=== PATIENT | male | born 1990 | race Two or more races ===

== ENCOUNTER 2024-06-02 23:54 | Emergency (ER) | payer MEDICAID, SELFPAY ==
[2024-06-02 23:55] VITALS: BMI 26.6
--- NOTE | 2024-06-03 00:01 | EKG_ITS ---
[facility] Test Date: 2024-06-03 Pat Name: YURIY MCELROY Department: Room: - Gender: Male Customer Support Associate: : 1990 Requested By: Lei Evans Order Number: [id number] Reading MD: Lei Evans Measurements Intervals [place] Rate: 69 P: 72 SD: 165 QRS: 76 QRSD: 100 T: 54 QT: 414 QTc: 444 Interpretive Statements SINUS RHYTHM No previous ECG available for comparison /store/S0/[id number]
[2024-06-03 01:01] VITALS: BP 123/76; PULSE 80; RESP 18; TEMP 36.9; O2SAT 97
--- NOTE | 2024-06-03 01:21 | PD.EDCHEST ---
ED Chest Pain RME/HPI General Chief Complaint: Chest Pain Stated Complaint: FEELING SHOCKS IN MY HEART Time Seen by Provider: 06/03/24 00:36 Arrival date/time: 06/02/24 23:54 34-year-old male who denies previous cardiac history reports with complaints of shocking sensation to the heart. Patient states that he was in normal state of health until he received some bad news that then caused the pain in his chest he denies shortness of breath nausea or vomiting dizziness blurred vision ringing or ears or radiating chest pain. Patient states that he has not taken any medications for symptoms. Patient states that he did note that the pain has decreased but has not resolved Related Data Home Medications ?Medication ?Instructions ?Recorded ?Confirmed methadone 10 mg tablet 120 mg PO QDAY #0 tabs 04/14/17 02/28/18 Previous Rx's ?Medication ?Instructions ?Recorded acetaminophen 650 mg 650 mg PO Q8H PRN fever or pain 06/28/21 tablet,extended release #30 tabs ibuprofen 600 mg tablet 600 mg PO Q8H PRN fever or pain 06/28/21 #30 tabs acetaminophen 500 mg capsule 1,000 mg (2 x 500 mg) PO Q8HR PRN 09/23/21 pain #60 caps ibuprofen 800 mg tablet 800 mg PO TID PRN pain #30 tabs 09/23/21 Allergies Allergy/AdvReac Type Severity Reaction Status Date / Time No Known Allergies Allergy Verified 06/02/24 23:57 Review of Systems Constitutional Constitutional: Denies chills, Denies fatigue and Denies headache(s) ENT Ears, Nose, Mouth, and Throat: Denies dizziness and Denies headache(s) Cardiovascular Cardiovascular: Reports chest pain and Denies dyspnea Respiratory Respiratory: Denies cough and Denies dyspnea Musculoskeletal Musculoskeletal: Denies limited range of motion and Denies myalgias Integumentary/Breasts Skin/Breast: Denies unusual bruising and Denies wounds Neurologic Neurologic: Denies dizziness and Denies headache(s) Psychiatric Psychiatric: Denies anxiety and Denies depression Endocrine Endocrine: Denies fatigue Hematologic/Lymphatic Hematologic/Lymphatic: Denies as per HPI and Denies easy bleeding Course Course Course Narrative: 34-year-old male with no previous past medical history reports with complaints of sudden onset of chest pain that began after receiving some bad news. Patient is EKG with normal sinus rhythm no ischemia or STEMI is noted patient appears to be in no distress pain seems to be resolving with talking to patient differential diagnosis includes anxiety versus depression versus muscle skeletal pain versus bereavement. Patient is stable nontoxic-appearing with stable vital signs will be discharged home as his symptoms have resolved a cardiac workup not warranted at this time Quality Measures none Orders Category Date Time Status EKG (ED ONLY) *Do not use* NOW Care 06/03/24 00:02 Completed EKG (ED Only) Stat Exams 06/03/24 00:01 Draft Vital Signs Vital signs: Vital Signs Temperature 98.4 F 06/03/24 01:01 Pulse Rate 80 06/03/24 01:01 Respiratory Rate 18 06/03/24 01:01 Blood Pressure 123/76 06/03/24 01:01 Pulse Oximetry (%) 97 06/03/24 01:01 Oxygen Delivery Method Room Air 06/03/24 01:01 Procedures -ED EKG Interpretation #1: EKG Impression: Normal sinus rhythm, No acute ST-T changes and No ischemic changes Chest Pain Patient data External records reviewed:: None Clinical information provided by:: patient Social determinants that could affect healthcare access:: none Patient has the following chronic illnesses:: none How is presenting disease/condition affected by chronic disease/condition?: no chronic disease Evaluation data The following diagnostics were reviewed and interpreted by me:: EKG tracing(s) Lab and/or radiology exams considered but not ordered:: Cardiac enzymes, CMP, CBC Interpretation Summary: Normal sinus rhythm no ischemia or STEMI noted Medications / Prescriptions Medications or Prescriptions considered but not ordered:: None Medication administrations:: None Consultations Consultation(s) initiated? (list below): No Diagnosis Most likely diagnosis given after review of the tests above:: Anxiety reaction Admission Indicated Admission indicated?: not indicated Admission Request Was there a request for admission?: No Disposition Plan Disposition Plan: Discharge Discharge Attestation Discharge Attestation: The patient and all family members were given an opportunity to ask questions and understood the discharge instructions. Discharge instructions specifically effects, indications for sooner follow up or return to the emergency department, and the expected course of current diagnosis. Patient condition: Stable Discharge Plan Plan Patient Disposition: HOME (Self Care) Prescriptions/Referrals Prescriptions/Med Rec: No Action methadone 10 mg Tablet 120 mg PO QDAY Qty: 0 acetaminophen 650 mg tablet extended release 650 mg PO Q8H PRN (Reason: fever or pain) Qty: 30 0RF Rx Instructions: swallow whole; do not chew/break/dissolve/open ibuprofen 600 mg tablet 600 mg PO Q8H PRN (Reason: fever or pain) Qty: 30 0RF ibuprofen 800 mg tablet 800 mg PO TID PRN (Reason: pain) Qty: 30 0RF acetaminophen 500 mg capsule 1,000 mg PO Q8HR PRN (Reason: pain) Qty: 60 0RF Problem List Clinical Impression: Anxiety reaction Patient/Caregiver Discharge Instructions Discharge Activity: activity as tolerated Education Materials: ED Anxiety Reaction Additional Instructions: Drink plenty of fluids get plenty of rest if symptoms return or worsen return to the emergency department immediately otherwise follow-up with your primary care provider in 24 to 48 hours Print Language: Estonian Stand Alone Forms: Alison Award Info., Patient Portal Info Letter
== END 2024-06-03 01:34 | disposition home or self-care (01) ==
LOC: SERX 06-03 01:47
PROVIDERS: Emergency Provider Emergency Medicine
DX: F41.1 Generalized anxiety disorder (principal); R07.9 Chest pain, unspecified
CPT/HCPCS: 93005; 99283

== ENCOUNTER 2024-06-08 12:24 | Emergency (ER) | payer MEDICAID, SELFPAY ==
[2024-06-08 12:25] VITALS: BMI 26.6
[2024-06-08 13:04] VITALS: BP 112/76; PULSE 73; RESP 16; TEMP 36.9; O2SAT 99
--- NOTE | 2024-06-08 13:17 | XR_ITS ---
Examination: PA lateral chest 2 views TECHNIQUE: Upright PA lateral chest 2 views Exam date and time: June 08, 2024 1335 hours Comparison April 14, 2017 INDICATIONS: Chest pain nausea beginning one week ago. FINDINGS: Normal heart size Lungs are clear. The osseous structures are intact IMPRESSION: No active disease
--- NOTE | 2024-06-08 13:17 | EKG_ITS ---
[facility] Test Date: 2024-06-08 Pat Name: YURIY MCELROY Department: Room: - Gender: Male Boner Meat: : 1990 Requested By: Rosa Rodriguez ([facility]) Ronnie Order Number: [id number] Reading MD: Rosa Rodriguez ([facility]) Ronnie Measurements Intervals [place] Rate: 64 P: 69 HI: 172 QRS: 79 QRSD: 100 T: 43 QT: 327 QTc: 339 Interpretive Statements SINUS RHYTHM NONSPECIFIC T-WAVE ABNORMALITY Compared to ECG 06/03/2024 01:05:49 T-wave abnormality now present /store/S0/[id number]/ecg/[id number].pdf
--- NOTE | 2024-06-08 13:27 | PD.EDRME ---
Rapid Medical Screening Exam RME Arrival date/time: 06/08/24 12:24 34-year-old male presents emergency department with complaints of chest pain. I have greeted and performed a focused initial assessment of this patient. Initial appropriate labs ordered at this time. A comprehensive ED assessment and evaluation of the patient and analysis of all test and completion of medical decision making process will be conducted by additional ED provider. Chief Complaint: Chest Pain Time Seen by Provider: 06/08/24 12:35 Vital signs: Vital Signs Temperature 98.5 F 06/08/24 13:04 Pulse Rate 73 06/08/24 13:04 Respiratory Rate 16 06/08/24 13:04 Blood Pressure 112/76 06/08/24 13:04 Pulse Oximetry (%) 99 06/08/24 13:04 Oxygen Delivery Method Room Air 06/08/24 13:04
[2024-06-08 13:34] LABS: Basophils % (Auto) 1 % (0-2.5); Eosinophils # (Auto) 0.2 Thou/mm3 (0.0-0.5); Eosinophils % (Auto) 2 % (0-10); Hematocrit 42.6 % (41.0-53.0); Hemoglobin 14.5 g/dL (13.5-16.0); Immature Granulocytes % (Auto) 0 % (0-0); Immature Granulocytes Auto 0.01 Thou/mm3 (0.00-0.00); Lymphocytes # (Auto) 3.7 Thou/mm3 (1.0-4.8); Lymphocytes % (Auto) 44 % (10-50); Mean Corpuscular Hemoglobin 29.1 pg (25.0-35.0); Mean Corpuscular Volume 86 fL (80-100); Monocytes # (Auto) 0.4 Thou/mm3 (0.0-0.8); Monocytes % (Auto) 5 % (0-12); Neutrophils # (Auto) 4.2 Thou/mm3 (1.8-7.7); Neutrophils % (Auto) 49 % (37-80); Nucleated Red Blood Cell % 0 /100 WBC (0); Platelet Count 199 Thou/mm3 (140-440); RDW Standard Deviation 40.4 fL (35.1-43.9); Red Blood Count 4.98 Miln/mm3 (4.50-5.90); White Blood Count 8.5 Thou/mm3 (3.8-10.6)
[2024-06-08 13:52] LABS: Alanine Aminotransferase 16 U/L (10-49); Albumin, Serum 4.8 gm/dL (3.5-5.0); Albumin/Globulin Ratio 1.6 (1.2-2.2); Alkaline Phosphatase 87 U/L (46-116); Anion Gap 5 (7-16); Aspartate Amino Transferase 25 U/L (0-34); BUN/Creatinine Ratio 18 Ratio (12-20); Bilirubin,Total 0.2 mg/dL (0.3-1.2); Blood Urea Nitrogen 16 mg/dL (9-23); Carbon Dioxide 29.7 mMol/L (20.0-31.0); Chloride 102 mMol/L (98-107); Creatinine (Component) 0.9 mg/dL (0.6-1.3); Estimated Creatinine Clearance 110.2 mL/min (>60); Glucose 88 mg/dL (74-106); Lipase 36 U/L (12-53); Magnesium 1.9 mg/dL (1.6-2.6); Osmolality,Calculated 274 (275-295); Potassium 4.5 mMol/L (3.4-5.1); Sodium 137 mMol/L (136-145); Total Protein 7.8 gm/dL (5.7-8.2); Troponin I < 0.002 ng/mL (0.0-0.045); eGFR > 60 See Note
[2024-06-08 15:09] LABS: Collection Type, Urine Clean Catch
[2024-06-08 15:18] LABS: Bilirubin,Urine Negative (Negative); Blood,Urine Trace (Negative); Clarity,Urine Clear (Clear/Hazy); Color,Urine Lt-Yellow (Lt Yel-Yel); Glucose, Urine Negative (Negative); Ketones,Urine Negative (Negative); Leukocyte Esterase,Urine Negative (Negative); Nitrite,Urine Negative (Negative); Protein,Urine Negative (Neg - Trace); RBC,Urine 4 /hpf (0-3); Specific Gravity,Urine 1.025 (1.001-1.035); Squamous Epithelial Cell,Urine 1 /hpf (0-5); Urobilinogen,Urine Negative mg/dL (0.0-1.0); WBC,Urine 1 /hpf (0-5)
--- NOTE | 2024-06-08 16:28 | EDNOTE_ITS ---
ED Chest Pain RME/HPI General Chief Complaint: Chest Pain Stated Complaint: CHEST PAIN Time Seen by Provider: 06/08/24 12:35 Source: patient Arrival date/time: 06/08/24 12:24 34-year-old male who denies previous cardiac history reports with complaints of mid sternal chest pain. Reports the pain has been intermittent in the middle of the chest going up into esophagus. Reports he was here in the emergency department a couple weeks ago with a similar symptoms patient requesting a work up. he denies shortness of breath nausea or vomiting dizziness blurred vision ringing or ears or radiating chest pain. Patient states that he has not taken any medications for symptoms. Patient states that he did note that the pain has decreased but has not resolved Mode of arrival: ambulatory Limitations: no limitations RME / HPI RME / HPI narrative: 06/08/24 12:24 34-year-old male presents emergency department with complaints of chest pain. I have greeted and performed a focused initial assessment of this patient. Initial appropriate labs ordered at this time. A comprehensive ED assessment and evaluation of the patient and analysis of all test and completion of medical decision making process will be conducted by additional ED provider. Related Data Home Medications ?Medication ?Instructions ?Recorded ?Confirmed methadone 10 mg tablet 120 mg PO QDAY #0 tabs 04/1402/28/18 Previous Rx's ?Medication ?Instructions ?Recorded acetaminophen 650 mg 650 mg PO Q8H PRN fever or p ain 06/28/21 tablet,extended release #30 tabs ibuprofen 600 mg tablet 600 mg PO Q8H PRN fever or p ain 06/28/21 #30 tabs acetaminophen 500 mg capsule 1,000 mg (2 x 500 mg) PO Q8HR PRN 09/23/21 pain #60 caps ibuprofen 800 mg tablet 800 mg PO TID PRN pain #30 t abs 09/23/21 Allergies Allergy/AdvReac Type Severity Reaction Status Date / Time No Known Allergies Allergy Verified 06/08/24 12:29 Review of Systems Review of Systems Systems Reviewed: All systems reviewed, normal except as documented Narrative Review of Systems: Gen: No fever, no chills, no weight loss EYES: No discharge, no visual changes, no pain HEENT: No ear pain, no congestion, no sore throat PULM: No shortness of breath, no cough, no congestion CV: + chest pain, no dyspnea on exertion, no palpitations GI: No nausea, no vomiting, no diarrhea, no pain, no constipation : No frequency, no urgency, no dysuria Musc/skel: No joint pain, no back pain Skin: No rash Psyc: No hallucinations, no depression Heme/Lymph: No easy bleeding or bruising tendencies Neuro: No weakness, no headache ED Exam General Limitations: Present no limitations General appearance: Present alert and anxious Head Head exam: Present atraumatic Eye Eye exam: Present normal appearance, PERRL and EOMI ENT ENT exam: Present normal exam, normal oropharynx and mucous membranes moist Neck Neck exam: Present normal inspection, full ROM and trachea midline Chest Chest inspection: Present normal inspection and symmetric chest wall rise Respiratory Respiratory exam: Present normal lung sounds bilaterally Cardiovascular Cardiovascular exam: Present regular rate, normal rhythm and normal heart sounds Abdominal Exam Abdominal exam: Present soft and normal bowel sounds Extremities Exam Extremities exam: Present normal inspection and full ROM Back Exam Back exam: Present normal inspection and full ROM Neurological Exam Neurological exam: Present alert, oriented X3 and CN II-XII intact Psychiatric Psychiatric exam: Present normal affect and normal mood Skin Skin exam: Present warm, dry, intact and normal color Course Quality Measures none Orders Category Date Time Status EKG (ED ONLY) *Do not use* NOW Care 06/08/24 13:17 Completed NPO STAT Care 06/08/24 13:17 Completed EKG (ED Only) Stat Exams 06/08/24 13:17 Ordered XR chest 2V Stat Exams 06/08/24 13:17 Completed CBC Stat Lab 06/08/24 13:29 Completed Comprehensive Metabolic Panel Stat Lab 06/08/24 13:29 Completed Lipase Stat Lab 06/08/24 13:29 Completed Magnesium Stat Lab 06/08/24 13:29 Completed Troponin I Stat Lab 06/08/24 13:29 Completed Urinalysis Stat Lab 06/08/24 14:45 Completed Acetaminophen Tab [Tylenol ES Tab] Med 06/08/24 16:55 Discontinued 1,000 mg PO X1 ONE Vital Signs Vital signs: Vital Signs Temperature 98.5 F 06/08/24 13:04 Pulse Rate 73 06/08/24 13:04 Respiratory Rate 16 06/08/24 13:04 Blood Pressure 112/76 06/08/24 13:04 Pulse Oximetry (%) 99 06/08/24 13:04 Oxygen Delivery Method Room Air 06/08/24 13:04 Chest Pain MDM Narrative MDM Narrative:: This is a 34 y old patient presents with chest pain, with symptoms suggestive of noncardiac chest pain. History without high risk features non substernal, no exertional component. Patient had reported pain began after bad news. However patient states this is his second visit to the ER for chest pain and no workup was completed on last visit. Even though patient has minimal CAD his risk factors including his age. Will go ahead and obtain send single troponin to evaluate for NSTEMI. EKG is without signs of ischemia. Patient's chest x-ray does not demonstrate pneumothorax, or pneumonia. Patient's vital signs stable during ED stay. After reevaluation patient stated his symptoms had improved.. All results reviewed with patient. Advised patient to follow-up with his PCP. Strict ER precautions given. Patient data External records reviewed:: [facility] previous records Clinical information provided by:: patient Social determinants that could affect healthcare access:: none Patient has the following chronic illnesses:: None How is presenting disease/condition affected by chronic disease/condition?: no chronic disease Evaluation data The following diagnostics were reviewed and interpreted by me:: lab results, radiology exam(s) and EKG tracing(s) Lab and/or radiology exams considered but not ordered:: No Interpretation Summary: See above EKG medically necessary in the evaluation of chest pain and interpreted by me and ED physician at the time of patient evaluation. Normal sinus rhythm with a rate of 85. FL and QT intervals within normal limits. No ST/T changes. No STEMI. Interpretation: Normal EKG Examination: PA lateral chest 2 views TECHNIQUE: Upright PA lateral chest 2 views Exam date and time: June 08, 2024 1335 hours Comparison April 14, 2017 INDICATIONS: Chest pain nausea beginning one week ago. FINDINGS: Normal heart size Lungs are clear. The osseous structures are intact IMPRESSION: No active disease Medications / Prescriptions Medications or Prescriptions considered but not ordered:: no Medication administrations:: Medication Administration History Discontinued Medications Acetaminophen (Acetaminophen 500 Mg Tablet) 1,000 mg PO X1 ONE Stop: 06/08/24 16:56 Last Admin: 06/08/24 18:15 Dose: 1,000 mg Documented By: All medications administered and effective Consultations Consultation(s) initiated? (list below): No Diagnosis Chest Pain Differential Diagnosis: pneumothorax, stable angina, unstable angina pectoris, atypical chest pain, st elevation myocardial infarction, costochondritis, chest pain and biliary colic Most likely diagnosis given after review of the tests above:: Chest pain, possible anxiety Admission Indicated Admission indicated?: not indicated Admission Request Was there a request for admission?: No Disposition Plan Disposition Plan: Discharge Discharge Attestation Discharge Attestation: The patient and all family members were given an opportunity to ask questions and understood the discharge instructions. Discharge instructions specifically effects, indications for sooner follow up or return to the emergency department, and the expected course of current diagnosis. Patient condition: Stable Discharge Plan Plan Patient Disposition: HOME (Self Care) Patient condition on transfer: Stable Prescriptions/Referrals Prescriptions/Med Rec: No Action methadone 10 mg Tablet 120 mg PO QDAY Qty: 0 acetaminophen 650 mg tablet extended release 650 mg PO Q8H PRN (Reason: fever or pain) Qty: 30 0RF Rx Instructions: swallow whole; do not chew/break/dissolve/open ibuprofen 600 mg tablet 600 mg PO Q8H PRN (Reason: fever or pain) Qty: 30 0RF ibuprofen 800 mg tablet 800 mg PO TID PRN (Reason: pain) Qty: 30 0RF acetaminophen 500 mg capsule 1,000 mg PO Q8HR PRN (Reason: pain) Qty: 60 0RF Referrals: Jensen Hunt MD [Primary Care Provider] - In 1 week Problem List Clinical Impression: Atypical chest pain Patient/Caregiver Discharge Instructions Discharge Activity: activity as tolerated Education Materials: ED Chest Pain, Uncertain Cause Additional Instructions: Is very important that you follow-up with your primary doctor or clinic make an appointment by Tuesday. As discussed you can have your doctor refer you to a detailer school photographs if the chest pain continues. Print Language: Slovenian Stand Alone Forms: Alison Award Info., Patient Portal Info Letter PA/CODING ANALYST Supervising Physician JESSA/HUBER Supervising Physician: Dr Bhardwaj
[2024-06-08 16:39] VITALS: BP 114/78; PULSE 69; RESP 18; TEMP 37.1; O2SAT 99
[2024-06-08] MEDS: ACETAMINOPHEN 500 MG TABLET 1000 MG PO (18:15)
== END 2024-06-08 18:16 | disposition home or self-care (01) ==
PROVIDERS: Nurse Practitioner Primary Care; Emergency Provider Emergency Medicine; PCP Family Medicine
DX: R07.89 Other chest pain (principal)
CPT/HCPCS: 36415; 71046; 80053; 81001; 83690; 83735; 84484; 85025; 93005; 99283; A9270

== ENCOUNTER 2024-10-16 11:21 | Emergency (ER) | payer MEDICAID, SELFPAY ==
[2024-10-16 11:22] VITALS: BMI 26.6
[2024-10-16 11:38] VITALS: BP 107/67; PULSE 72; RESP 18; TEMP 36.9; O2SAT 99
--- NOTE | 2024-10-16 11:44 | XR_ITS ---
Examination: CT brain head without contrast. 2-D sagittal coronal reconstructions Date and time of exam:October 16, 2024, 12 0 9:00 PM Comparison February 24, 2016 INDICATIONS: Onset severe headaches with dizziness beginning today CTDI: vol (mGy):48.9 DLP: (mGycm):1012 Technique: Multiple CT axial sections of the brain have been obtained, 5 mm slice thickness. Contrast has not been administered. 2-D sagittal, coronal reconstructions have been obtained Low dose protocols were performed. One or more of the following dose reduction techniques were used; automated exposure control, adjustment of the mA and/or KV according to patient size, use of iterative reconstruction technique. Findings: No significant ventricular enlargement. Intra-axial or extra-axial hemorrhage density is not seen. No mass effect or midline shift Basal cisterns are not remarkable. Fourth ventricle is midline. Cranial vault intact. Right temporal lobe subarachnoid cyst Mild chronic ethmoid sinusitis Impression: Negative for acute hemorrhage, mass effect or midline shift
--- NOTE | 2024-10-16 11:45 | PD.EDRME ---
Rapid Medical Screening Exam RME Arrival date/time: 10/16/24 11:21 34-year-old male with a history of a brain cyst presents to the emergency room with a chief complaint of headache, dizziness, lightheadedness x 2 days I have greeted and performed a focused initial assessment of this patient. A comprehensive ED assessment and evaluation of the patient, analysis of all test results, and completion of the medical decision making process will be conducted by additional ED providers. Chief Complaint: Headache Time Seen by Provider: 10/16/24 11:37 Vital signs: Vital Signs Temperature 98.4 F 10/16/24 11:38 Pulse Rate 72 10/16/24 11:38 Respiratory Rate 18 10/16/24 11:38 Blood Pressure 107/67 10/16/24 11:38 Pulse Oximetry (%) 99 10/16/24 11:38 Oxygen Delivery Method Room Air 10/16/24 11:38 Vital signs reviewed by provider: Yes
[2024-10-16] MEDS: SUMAtriptan INJ 6 MG/0.5 ML VIAL SC (12:03)
[2024-10-16 12:32] LABS: Basophils # (Auto) 0.0 Thou/mm3 (0.0-0.2); Basophils % (Auto) 1 % (0-2.5); Eosinophils # (Auto) 0.2 Thou/mm3 (0.0-0.5); Eosinophils % (Auto) 2 % (0-10); Hematocrit 40.0 % (41.0-53.0); Hemoglobin 13.6 g/dL (13.5-16.0); Immature Granulocytes Auto 0.01 Thou/mm3 (0.00-0.00); Lymphocytes # (Auto) 2.5 Thou/mm3 (1.0-4.8); Lymphocytes % (Auto) 40 % (10-50); Mean Corpuscular HGB Conc 34.0 g/dl (31.0-37.0); Mean Corpuscular Hemoglobin 29.9 pg (25.0-35.0); Mean Corpuscular Volume 88 fL (80-100); Monocytes # (Auto) 0.4 Thou/mm3 (0.0-0.8); Monocytes % (Auto) 7 % (0-12); Neutrophils # (Auto) 3.1 Thou/mm3 (1.8-7.7); Neutrophils % (Auto) 50 % (37-80); Nucleated Red Blood Cell # 0.00 Thou/mm3 (0.00-0.00); Nucleated Red Blood Cell % 0 /100 WBC (0); Platelet Count 164 Thou/mm3 (140-440); RDW Standard Deviation 40.4 fL (35.1-43.9); Red Blood Count 4.55 Miln/mm3 (4.50-5.90); White Blood Count 6.2 Thou/mm3 (3.8-10.6)
[2024-10-16 13:01] LABS: Alanine Aminotransferase 10 U/L (10-49); Albumin, Serum 4.8 gm/dL (3.5-5.0); Albumin/Globulin Ratio 1.8 (1.2-2.2); Alkaline Phosphatase 79 U/L (46-116); Anion Gap 4 (7-16); Aspartate Amino Transferase 23 U/L (0-34); BUN/Creatinine Ratio 10 Ratio (12-20); Bilirubin,Total 0.2 mg/dL (0.3-1.2); Blood Urea Nitrogen 10 mg/dL (9-23); Calcium 9.4 mg/dL (8.3-10.6); Calcium (Corrected) 9.4 mg/dL (8.5-10.1); Carbon Dioxide 30.2 mMol/L (20.0-31.0); Chloride 107 mMol/L (98-107); Creatinine (Component) 1.0 mg/dL (0.6-1.3); Estimated Creatinine Clearance 99.2 mL/min (>60); Globulin 2.7 gm/dL (2.3-3.5); Glucose 90 mg/dL (74-106); Osmolality,Calculated 280 (275-295); Potassium 4.7 mMol/L (3.4-5.1); Sodium 141 mMol/L (136-145); Total Protein 7.5 gm/dL (5.7-8.2); eGFR > 60 See Note
[2024-10-16] MEDS: KETOROLAC INJ 60 MG/2 ML VIAL 30 MG IM (13:29)
--- NOTE | 2024-10-26 14:23 | EDNOTE_ITS ---
ED Headache RME/HPI General Chief Complaint: Headache Stated Complaint: HEADACHE, PT SAYS HE HAS BRAIN CYST Time Seen by Provider: 10/16/24 11:37 Source: patient Arrival date/time: 10/16/24 11:21 34-year-old male with a history of a brain cyst presents to the emergency room with a chief complaint of headache, dizziness, lightheadedness x 2 days Mode of arrival: ambulatory Limitations: no limitations RME / HPI RME / HPI Narrative: 10/16/24 11:21 34-year-old male with a history of a brain cyst presents to the emergency room with a chief complaint of headache, dizziness, lightheadedness x 2 days I have greeted and performed a focused initial assessment of this patient. A comprehensive ED assessment and evaluation of the patient, analysis of all test results, and completion of the medical decision making process will be conducted by additional ED providers. Related Data Home Medications ?Medication ?Instructions ?Recorded ?Confirmed methadone 10 mg tablet 120 mg PO QDAY #0 tabs 04/1402/28/18 Previous Rx's ?Medication ?Instructions ?Recorded acetaminophen 650 mg 650 mg PO Q8H PRN fever or p ain 06/28/21 tablet,extended release #30 tabs ibuprofen 600 mg tablet 600 mg PO Q8H PRN fever or p ain 06/28/21 #30 tabs acetaminophen 500 mg capsule 1,000 mg (2 x 500 mg) PO Q8HR PRN 09/23/21 pain #60 caps ibuprofen 800 mg tablet 800 mg PO TID PRN pain #30 t abs 09/23/21 acetaminophen-caffeine 500 mg-65 1 tab PO Q8H PRN pain #30 tabs 10/16/24 mg tablet (Excedrin Tension Headache) Allergies Allergy/AdvReac Type Severity Reaction Status Date / Time No Known Allergies Allergy Verified 10/16/24 11:24 Review of Systems Review of Systems Systems Reviewed: All systems reviewed, normal except as documented Constitutional Constitutional: Reports system reviewed and no additional complaints, except as documented, Denies fatigue, Denies fever(s), Reports headache(s) and Reports weakness Eyes Eyes: Reports system reviewed and no additional complaints, except as documented, Denies blurry vision and Denies change in vision ENT Ears, Nose, Mouth, and Throat: Reports system reviewed and no additional complaints, except as documented, Denies otalgia, Reports headache(s), Denies nasal congestion, Denies throat swelling and Reports vertigo Cardiovascular Cardiovascular: Reports system reviewed and no additional complaints, except as documented, Denies chest pain, Denies dyspnea and Denies dyspnea on exertion Respiratory Respiratory: Reports system reviewed and no additional complaints, except as documented, Denies chest congestion, Denies cough, Denies dyspnea, Denies dyspnea on exertion and Denies wheezing Gastrointestinal Gastrointestinal: Reports system reviewed and no additional complaints, except as documented, Denies abdominal pain, Denies cramping, Denies nausea and Denies vomiting Genitourinary Genitourinary: Reports system reviewed and no additional complaints, except as documented, Denies dysuria and Denies hematuria Musculoskeletal Musculoskeletal: Reports system reviewed and no additional complaints, except as documented and Denies back pain Integumentary/Breasts Skin/Breast: Reports system reviewed and no additional complaints, except as documented and Denies wounds Neurologic Neurologic: Reports system reviewed and no additional complaints, except as documented, Denies confusion, Reports headache(s), Denies lack of coordination, Reports vertigo and Reports weakness Psychiatric Psychiatric: Reports system reviewed and no additional complaints, except as documented, Denies anxiety, Denies confusion, Denies depression, Denies parano ia, Denies suicidal ideation and Denies tactile hallucinations Endocrine Endocrine: Reports system reviewed and no additional complaints, except as doc umented and Denies fatigue Hematologic/Lymphatic Hematologic/Lymphatic: Reports system reviewed and no additional complaints, except as documented and Denies lymphadenopathy Allergic/Immunologic Allergic/Immunologic: Reports system reviewed and no additional complaints, except as documented, Denies throat swelling, Denies urticaria and Denies wheezing Past Medical History Past Medical History CARDIAC: Negative Congestive Heart Failure RESPIRATORY: Negative Chronic Obstructive Pulmonary Disease (COPD) GENITOURINARY: Negative Renal Disease ENDOCRINE: Negative Diabetes Mellitus Type 1 or Diabetes Mellitus Type 2 Social History SMOKING STATUS: Current every day smoker ED Exam General Limitations: Present no limitations General appearance: Present alert and in no apparent distress Head Head exam: Present atraumatic Eye Eye exam: Present normal appearance, PERRL and EOMI ENT ENT exam: Present normal exam, normal oropharynx and mucous membranes moist Neck Neck exam: Present normal inspection, full ROM and trachea midline Chest Chest inspection: Present normal inspection and symmetric chest wall rise Respiratory Respiratory exam: Present normal lung sounds bilaterally Cardiovascular Cardiovascular exam: Present regular rate, normal rhythm and normal heart sounds Abdominal Exam Abdominal exam: Present soft and normal bowel sounds Extremities Exam Extremities exam: Present normal inspection and full ROM Back Exam Back exam: Present normal inspection and full ROM Neurological Exam Neurological exam: Present alert, oriented X3, CN II-XII intact, normal gait and reflexes normal Expanded Neurological Exam Patient oriented to: Present person, place and time Speech: Present fluid speech Cranial nerves: Normal: EOM function (II, III, IV, ) Cerebellar function: Normal: finger to nose Cerebellar function: Present normal gait Motor strength - LUE: 5/5 Motor strength - RUE: 5/5 Motor strength - LLE: 5/5 Motor strength - RLE: 5/5 Psychiatric Psychiatric exam: Present normal affect and normal mood Skin Skin exam: Present warm, dry, intact and normal color Course Quality Measures none Orders Category Date Time Status CT head/brain wo con Stat Exams 10/16/24 11:44 Completed CBC Stat Lab 10/16/24 11:55 Completed CMP [Comprehensive Metabolic Panel] Stat Lab 10/16/24 11:55 Completed Ketorolac Inj [Toradol Inj] Med 10/16/24 13:19 Discontinued 30 mg IM X1 ONE SUMAtriptan INJ [Imitrex Inj] Med 10/16/24 11:44 Discontinued 6 mg SC X1 ONE Vital Signs Vital signs: Vital Signs Temperature 98.4 F 10/16/24 11:38 Pulse Rate 72 10/16/24 11:38 Respiratory Rate 18 10/16/24 11:38 Blood Pressure 107/67 10/16/24 11:38 Pulse Oximetry (%) 99 10/16/24 11:38 Oxygen Delivery Method Room Air 10/16/24 11:38 Headache MDM Narrative MDM Narrative:: 34-year-old male with a history of a brain cyst presents to the emergency room with a chief complaint of headache, dizziness, lightheadedness x 2 days Patient is hemodynamically stable and in no apparent distress Physical examination shows a normal neurological exam. There are no focal deficits. Patient is a GCS 15 he is alert and oriented x 3 pupils are PERRLA EOMs are intact all cranial reflexes are intact CT of the head and brain was completed with negative for any acute findings. CBC CMP are all within normal limits Migraine medication was given to the patient with improvement with symptoms Patient was discharged and educated to follow-up with primary care provider in the next 24 to 48 hours and return to the emergency room for any evidence of worsening signs or symptoms Patient data External records reviewed:: [facility] previous records Clinical information provided by:: patient Social determinants that could affect healthcare access:: none Patient has the following chronic illnesses:: No chronic illness How is presenting disease/condition affected by chronic disease/condition?: no chronic disease Evaluation data The following diagnostics were reviewed and interpreted by me:: lab results and radiology exam(s) Lab and/or radiology exams considered but not ordered:: Labs and radiology exams considered and ordered Interpretation Summary: CT head and brain-Findings: No significant ventricular enlargement. Intra-axial or extra-axial hemorrhage density is not seen. No mass effect or midline shift Basal cisterns are not remarkable. Fourth ventricle is midline. Cranial vault intact. Right temporal lobe subarachnoid cyst Mild chronic ethmoid sinusitis Impression: Negative for acute hemorrhage, mass effect or midline shift Medications / Prescriptions Medications or Prescriptions considered but not ordered:: Medication given Medication administrations:: Medication Administration History Discontinued Medications Ketorolac Tromethamine (Ketorolac Inj 60 Mg/2 Ml Vial) 30 mg IM X1 ONE Stop: 10/16/24 13:20 Last Admin: 10/16/24 13:29 Dose: 30 mg Documented By: NATE Sumatriptan Succinate (Sumatriptan Inj 6 Mg/0.5 Ml Vial) 6 mg SC X1 ONE Stop: 10/16/24 11:45 Last Admin: 10/16/24 12:03 Dose: 6 mg Documented By: ASIM Medication given Consultations Consultation(s) initiated? (list below): No Diagnosis Differential diagnosis headache: migraine, tension headache, headache and meningitis Most likely diagnosis given after review of the tests above:: Migraine Admission Indicated Admission indicated?: not indicated Admission Request Was there a request for admission?: No Disposition Plan Disposition Plan: Discharge Discharge Attestation Discharge Attestation: The patient and all family members were given an opportunity to ask questions and understood the discharge instructions. Discharge instructions specifically effects, indications for sooner follow up or return to the emergency department, and the expected course of current diagnosis. Patient condition: Stable Discharge Plan Plan Patient Disposition: HOME (Self Care) Discharge Disposition comment: Stable Prescriptions/Referrals Prescriptions/Med Rec: New Excedrin Tension Headache 500-65 mg tablet 1 tab PO Q8H PRN (Reason: pain) Qty: 30 0RF No Action methadone 10 mg Tablet 120 mg PO QDAY Qty: 0 acetaminophen 650 mg tablet extended release 650 mg PO Q8H PRN (Reason: fever or pain) Qty: 30 0RF Rx Instructions: swallow whole; do not chew/break/dissolve/open ibuprofen 600 mg tablet 600 mg PO Q8H PRN (Reason: fever or pain) Qty: 30 0RF ibuprofen 800 mg tablet 800 mg PO TID PRN (Reason: pain) Qty: 30 0RF acetaminophen 500 mg capsule 1,000 mg PO Q8HR PRN (Reason: pain) Qty: 60 0RF Referrals: No Primary/Family,Physician [Primary Care Provider] - In 1 week Problem List Clinical Impression: Migraine Patient/Caregiver Discharge Instructions Education Materials: ED Headache, Migraine, Classic Additional Instructions: Please follow-up with your primary care provider in the next 24 to 48 hours Medication was sent to your pharmacy please pick it up and take it as indicated Your CT of your head and brain was completed and was negative for any acute findings. For any evidence of worsening signs or symptoms return to the emergency room immediately Print Language: Macedonian Stand Alone Forms: Alison Award Info., Work/School Release, Patient Portal Info Letter PA/PATIENT RELATIONS DIRECTOR Supervising Physician PA/PATIENT RELATIONS DIRECTOR Supervising Physician: Dr. LAGUERRE
== END 2024-10-16 13:39 | disposition home or self-care (01) ==
PROVIDERS: Nurse Practitioner Family; Emergency Provider Emergency Medicine
DX: G43.909 Migraine, unspecified, not intractable, without status migrainosus (principal)
CPT/HCPCS: 36415; 70450; 80053; 85025; 96372; 99284; J1885; J3030

== ENCOUNTER → 2025-01-30 | Outpatient (CLI) | payer MEDICAID, SELFPAY ==
--- NOTE | 2025-01-30 13:03 | XR_ITS ---
EXAMINATION: PA lateral chest 2 views TECHNIQUE: Upright PA lateral chest 2 views Date and time: January 30, 2025, 1315 hours, comparison June 08, 2024 INDICATIONS: Smoking, vaping history with chest pain FINDINGS: Normal heart size Lungs are clear. Osseous structures are intact IMPRESSION: No active disease
== END | disposition home or self-care (01) ==
DX: R07.89 Other chest pain (principal)
CPT/HCPCS: 71046